=== PATIENT | male | born 1950 | race African-American/Black ===

== ENCOUNTER → 2017-08-20 | Outpatient (CLI) | payer OTHER ==
[~2017-08-20] MED LIST: LOSARTAN POTASS50 MG PO; NORCO 5-325 TA1 EACH PO; NORVASC5 MG PO; PENICILLIN V P500 MG PO; VENTOLIN HFA 1818 GM INH; ZPAK PO
--- NOTE | ~2017-08-20 | 2DMMODE ---
[facility] [address] [place] [address] 2 D/M-MODE ECHOCARDIOGRAM Name: GIBRAN PERRY JR Room #: REG [facility] [id number] Admission: 08/20/17 Attend Phys: Jabier Cook Discharge: Date of : 48 Date of Service: 08/20/17 1047 Report #: [id number] THIS REPORT FOR: //name// APPROVED REPORT Study performed: 08/20/2017 10:03:42 EXAM: Comprehensive 2D, Doppler, and color-flow Echocardiogram Patient Location: Out-Patient Room #: Echo lab Status: routine BSA: 1.93 HR: 62 bpm BP: 149/99 mmHg Other Information Study Quality: Good Indications Hypertension/HDD 2D Dimensions RVDd: 35.50 mm LVEF(%): 49.89 (>50%) IVSd: 14.48 (7-11mm) LVOT Diam: 19.47 (18-24mm) LVDd: 55.17 mm PWd: 14.77 (7-11mm) Ascending Ao: 28.97 (22-36mm) LVDs: 41.04 (25-40mm) Aortic Root: 29.43 mm IVC: 11.00 mm Leslie's LVEF: 49.89 % Volumes Left Atrial Volume (Systole) Single Plane 4CH: 52.74 mL Single Plane 2CH: 61.34 mL LA ESV Index: 33.00 mL/m2 Aortic Valve AoV Peak Justo.: 1.41 m/s AO Peak Gr.: 7.99 mmHg LVOT Max P.51 mmHg LVOT Max V: 1.06 m/s LY Vmax: 2.24 cm2 Mitral Valve E/A Ratio: 0.7 MV Decel. Time: 175.53 ms MV E Max Justo.: 0.85 m/s [facility] [place] [address] 2 D/M-MODE ECHOCARDIOGRAM Name: GIBRAN PERRY Room #: [facility]INE[facility]ehuda#: [id number] Admission: 08/20/17 Attend Phys: Jabier Cook Discharge: Date of : 48 Date of Service: 08/20/17 1047 Report #: [id number] A Justo.: 1.27 m/s MV PHT: 50.90 ms IVRT: 147.64 ms Pulmonary Valve PV Peak Justo.: 1.01 m/s PV Peak Gr.: 4.06 mmHg Pulmonary Vein P Vein S: 0.55 m/s P Vein A: 0.26 m/s P Vein D: 0.48 m/s P Vein A Dur.: 96.9 msec P Vein S/D Ratio: 1.15 Tricuspid Valve TR Peak Justo.: 2.76 m/s TR Peak Gr.: 30.51 mmHg PA Pressure: 35.00 mmHg Left Ventricle The left ventricle is normal size. There is mild hypokinesis in the posterior wall. Mild concentric left ventricular hypertrophy. The left ventricular ejection fraction is within the normal range. LVEF is 50-55%. Grade I - abnormal relaxation pattern. Right Ventricle The right ventricle is normal size. The right ventricular systolic function is normal. Atria Left atrium is at the upper limits of normal. Right atrium is at the upper limits of normal. Aortic Valve The aortic valve is normal in structure. No aortic regurgitation is present. There is no aortic valvular stenosis. Mitral Valve The mitral valve is normal in structure. Mild mitral regurgitation. No evidence of mitral valve stenosis. Tricuspid Valve The tricuspid valve is normal in structure. There is trace to mild tricuspid regurgitation. The right atrial pressure is estimated at mmHg. There is mild pulmonary hypertension. Pulmonic Valve The pulmonary valve is normal in structure. Trace pulmonic [address] [address] 2 D/M-MODE ECHOCARDIOGRAM Name: GIBRAN PERRY Room #: REG [facility]#: [id number] Admission: 08/20/17 Attend Phys: Jabier Cook Discharge: Date of : 48 Date of Service: 08/20/17 1047 Report #: [id number] regurgitation. Great Vessels The aortic root is normal in size. IVC is normal in size and collapses >50% with inspiration. Pericardium There is no pericardial effusion. <Conclusion> The left ventricle is normal size. LVEF is 50-55%. There is mild hypokinesis in the posterior wall. Left atrium is at the upper limits of normal. Right atrium is at the upper limits of normal. The aortic valve is normal in structure. The mitral valve is normal in structure. Mild mitral regurgitation. The tricuspid valve is normal in structure. There is trace to mild tricuspid regurgitation. The right atrial pressure is estimated at mmHg. There is mild pulmonary hypertension. The pulmonary valve is normal in structure. Trace pulmonic regurgitation. There is no pericardial effusion. <ELECTRONICALLY SIGNED> By: Jabier Schmitz MD 08/20/17 1047 1047 1047 Jabier Schmitz MD /INF
== END ==
LOC: CV 08:37
DX: I08.1 Rheumatic disorders of both mitral and tricuspid valves (principal); I10 Essential (primary) hypertension; I27.20 Pulmonary hypertension, unspecified